=== PATIENT | female | born 2000 ===

== ENCOUNTER 2021-06-24 13:15 | Inpatient (IN) ==
[2021-06-24] MEDS ORDERED: MEPERIDINE 50 MG/1 ML VIAL IV PRN (13:42)
[2021-06-24] MEDS ORDERED: BUTORPHANOL 2 MG/ML VIAL IV PRN (13:42)
[2021-06-24] MEDS ORDERED: ONDANSETRON 4 MG/2 ML VIAL IV PRN ×2 (13:42→23:51)
[2021-06-24] MEDS: LACTATED RINGERS 1,000 ML IV SCH ×3 (13:50→22:00)
[2021-06-24] MEDS ORDERED: OXYTOCIN/LR 20 UNIT/1,000 ML BAG IV SCH (14:00)
[2021-06-24 14:11] LABS: Basophils % 0.2 % (0.0-0.8); Eosinophils % 0.2 % (0.00-10.9); Hematocrit 35.9 VOL% (35.7-47.0); Hemoglobin 11.5 GM/DL (12.0-16.0); Immature Granulocytes % 0.4 %; Immature Granulocytes Absolute 0.02 #; Lymphocytes # 1.1 10*3/uL (1.4-4.0); Lymphocytes % 20.7 % (21.3-54.2); Mean Corpuscular Volume 88.4 FL (87-102); Mean Platelet Volume 10.2 FL (9.6-12.0); Monocytes % 6.3 % (1.7-12.7); Neutrophils % 72.2 % (38.7-73.9); Platelet Count 238 T/CUMM (130-400); Red Blood Count 4.06 MC/CUMM (3.8-5.5); Red Cell Distribution Width 13.4 % (9.3-17.3); White Blood Count 5.1 T/CUMM (4-12)
[2021-06-24 14:31] LABS: Bilirubin,Total 0.8 MG/DL (0.20-1.00); Calcium 8.6 MG/DL (8.5-10.1); Osmolality,Calculated 274.5 MOS/KG (273-304); Total Protein 6.2 G/DL (6.4-8.2); Uric Acid 5.4 MG/DL (2.6-6.0)
[2021-06-24 14:46] LABS: Hepatitis B Surface Ag Quant < 0.10 Index; Hepatitis B Surface Ag Result Non-Reactive (NonReactive)
[2021-06-24] MEDS ORDERED: CITRIC ACID/SODIUM CITRATE 30 ML UDCUP PO ONE (15:12)
[2021-06-24] MEDS ORDERED: diphenhydrAMINE 50 MG/1 ML VIAL IV PRN ×2 (15:12)
[2021-06-24] MEDS ORDERED: FAMOTIDINE 20 MG/2 ML VIAL IV ONE (15:12)
[2021-06-24] MEDS ORDERED: LACTATED RINGERS 1,000 ML IV ONE (15:12)
[2021-06-24] MEDS ORDERED: hydrOXYzine HCL 25 MG/1 ML VIAL IM PRN (15:12)
[2021-06-24] MEDS ORDERED: ePHEDrine 50 MG/ML VIAL IV PRN (15:12)
[2021-06-24] MEDS ORDERED: PROMETHAZINE 25 MG/1 ML VIAL IM ONE (15:12)
[2021-06-24] MEDS ORDERED: NALOXONE 0.4 MG/ML VIAL IV PRN (15:12)
[2021-06-24] MEDS ORDERED: AMPICILLIN INJ 2,000 MG in SODIUM CHLORIDE 0.9% 100 ML IV ONE (15:14)
[2021-06-24] MEDS ORDERED: SODIUM CHLORIDE 0.9% 0 ML IV ONE (15:17)
[2021-06-24] MEDS ORDERED: fentaNYL 2 MCG/ROPIV 0.2% EPID 100 ML EPIDURAL SCH (15:30)
[2021-06-24] MEDS ORDERED: AMPICILLIN INJ 1,000 MG in SODIUM CHLORIDE 0.9% 100 ML IV SCH (19:15)
[2021-06-24 21:01] LABS: Bilirubin,Urine Negative (Negative); Blood, Urine Negative (Negative); Glucose,Urine (UA) Negative (Negative); Ketones,Urine 80 mg/dL (Negative); Mucus,Urine Few /LPF (Occasional); Nitrite,Urine Negative (Negative); Protein,Urine 30 MG/DL; RBC,Urine 2 /HPF (0-4); Squamous Epithelial Cell,Urine Occasional /HPF (0-10); Urine Appearance CLEAR (Clear); Urine Specific Gravity 1.024 (1.001-1.035)
[2021-06-24 21:19] LABS: Urine Color Yellow (Yellow)
[2021-06-24] MEDS ORDERED: ACETAMINOPHEN 500 MG TABLET PO ONE (21:54)
[2021-06-24] MEDS ORDERED: ceFAZolin 2,000 MG/50 ML DUPLEX IV ONE (22:26)
[2021-06-24] MEDS ORDERED: OXYTOCIN 10 UNIT/ML VIAL IM PRN (22:28)
[2021-06-24] MEDS ORDERED: OXYTOCIN/LR 30 UNIT/1,000 ML BAG IV PRN (22:28)
[2021-06-24] MEDS ORDERED: OXYTOCIN/LR 0 UNIT/0 ML BAG IV ONE (22:37)
[2021-06-24] MEDS ORDERED: SODIUM CHLORIDE 0.9% 100 ML IV ONE (22:37)
[2021-06-24] MEDS ORDERED: TRANEXAMIC ACID 1,000 MG/10 ML VIAL ONE (22:37)
[2021-06-24] MEDS ORDERED: miSOPROStoL 200 MCG TABLET ONE (22:37)
[2021-06-24] MEDS ORDERED: CARBOPROST TROMETHAMINE 250 MCG/ML AMP IM ONE (22:38)
[2021-06-24] MEDS ORDERED: METHYLERGONOVINE 0.2 MG/1 ML AMP ONE (22:38)
[2021-06-24] MEDS ORDERED: LIDOCAINE MPF 2% /EPI 20 ML VIAL ONE (22:46)
[2021-06-24] MEDS ORDERED: PHENYLEPHRINE 1 MG/10 ML SYRINGE IV ONE (23:10)
[2021-06-24] MEDS ORDERED: ONDANSETRON 4 MG/2 ML VIAL ONE (23:10)
[2021-06-24] MEDS ORDERED: LACTATED RINGERS 1,000 ML IV SCH (23:45)
[2021-06-24 23:50] LABS: Cord Arterial Blood HCO3 22.5 MMOL/L
[2021-06-24] MEDS ORDERED: SIMETHICONE CHEW 80 MG TABLET PO PRN (23:51)
[2021-06-24] MEDS ORDERED: ACETAMINOPHEN 325 MG TABLET PO PRN (23:51)
[2021-06-24] MEDS ORDERED: OXYTOCIN/LR 20 UNIT/1,000 ML BAG IV ONE (23:51)
[2021-06-24] MEDS ORDERED: RHO(D) IMMUNE GLOBULIN 300 MCG SYRINGE IM ONE (23:51)
[2021-06-24 23:52] LABS: Cord Venous Blood PCO2 58.2 MMHG; Cord Venous Blood PO2 < 17
[2021-06-25] MEDS: IBUPROFEN 800 MG TABLET PO PRN ×2 (04:10→15:45)
[2021-06-25] MEDS ORDERED: HYDROmorphone 2 MG/1 ML VIAL IV ONE (06:01)
[2021-06-25 06:24] LABS: Basophils % 0.1 % (0.0-0.8); Hematocrit 26.9 VOL% (35.7-47.0); Hemoglobin 8.8 GM/DL (12.0-16.0); Immature Granulocytes % 0.6 %; Immature Granulocytes Absolute 0.06 #; Lymphocytes # 1.5 10*3/uL (1.4-4.0); Lymphocytes % 14.4 % (21.3-54.2); Mean Corpuscular HGB Conc 32.7 GM/DL (32-36); Mean Corpuscular Volume 87.9 FL (87-102); Mean Platelet Volume 10.5 FL (9.6-12.0); Monocytes % 4.9 % (1.7-12.7); Platelet Count 190 T/CUMM (130-400); Red Blood Count 3.06 MC/CUMM (3.8-5.5); Red Cell Distribution Width 13.3 % (9.3-17.3); White Blood Count 10.4 T/CUMM (4-12)
[2021-06-25] MEDS: DOCUSATE SODIUM 100 MG CAPSULE PO SCH ×2 (09:18→21:46)
[2021-06-25] MEDS: MULTIVITAMIN (PRENATAL) TABLET PO SCH (09:18)
[2021-06-25] MEDS: METOCLOPRAMIDE 10 MG TABLET PO SCH (21:46)
[2021-06-25] MEDS: MAGNESIUM HYDROXIDE SUSP 30 ML UDCUP PO PRN (21:46)
[2021-06-26] MEDS: IBUPROFEN 800 MG TABLET PO PRN ×2 (02:27→11:28)
[2021-06-26] MEDS: METOCLOPRAMIDE 10 MG TABLET PO SCH (05:54)
[2021-06-26] MEDS ORDERED: INFLUENZA VIRUS VACCINE 0.5 ML SYRINGE IM ONE (08:00)
[2021-06-26 08:36] VITALS: BP 124/70
[2021-06-26] MEDS: MAGNESIUM HYDROXIDE SUSP 30 ML UDCUP PO PRN (08:45)
[2021-06-26] MEDS: DOCUSATE SODIUM 100 MG CAPSULE PO SCH (08:45)
[2021-06-26] MEDS: MULTIVITAMIN (PRENATAL) TABLET PO SCH (08:45)
[2021-06-26] MEDS ORDERED: FERROUS SULFATE 325 MG TABLET PO SCH (09:00)
== END 2021-06-26 14:00 | disposition home or self-care (01) | DRG 540 ==
LOC: N.LD 13:15 → N.OB 06-25 09:37
PROVIDERS: ADMIT Obstetrics & Gynecology; ATTEND Obstetrics & Gynecology
PROC: LDCSECT (ICD-10-PCS; 2021-06-24 22:45)